=== PATIENT | female | born 1980 | race Hispanic/Latino ===

== ENCOUNTER 2018-05-05 07:21 | Emergency (ER) | payer OTHER ==
[2018-05-05] MEDS ORDERED: LIDOCAINE 5% TOPICAL PATCH TP ONE (07:58)
[2018-05-05] MEDS ORDERED: ACETAMINOPHEN 325 MG TAB ONE (07:59)
[2018-05-05 08:19] LABS: APPEARANCE,URINE Cloudy (CLEAR); BILIRUBIN,URINE Negative (NEGATIVE); COLOR,URINE Yellow (YELLOW); GLUCOSE, URINE (UA) Negative (NEGATIVE); KETONES,URINE Negative (NEGATIVE); LEUKOCYTE ESTERASE ,URINE Large (NEGATIVE); NITRATE,URINE Positive (NEGATIVE); OCCULT BLOOD,URINE Trace (NEGATIVE); PH,URINE 5.5 (5.0-8.0); PROTEIN,URINE POS 1+ (NEGATIVE); UROBILINOGEN,URINE 0.2 mg/dL (0.2-1.0)
[2018-05-05 08:30] LABS: HCG,QUAL RESULT POSITIVE (NEGATIVE)
[2018-05-05] MEDS ORDERED: LIDOCAINE HCL-MPF 1% 2ML VIAL ONE (08:45)
[2018-05-05] MEDS ORDERED: CEFTRIAXONE SODIUM 1 GM ONE (08:45)
[2018-05-05 08:54] LABS: BACTERIA,URINE Many /HPF (None Seen)
[2018-05-05 08:56] LABS: RBC,URINE 0-1 /HPF (0-1)
== END 2018-05-05 09:50 | disposition home or self-care (01) ==
LOC: EDH 07:21
DX: O23.42 Unspecified infection of urinary tract in pregnancy, second trimester (principal); O99.332 Smoking (tobacco) complicating pregnancy, second trimester; Z3A.16 16 weeks gestation of pregnancy
CPT/HCPCS: 76805; 81001; 81025; 87077; 87088; 87186; 96372; 99285; J0696; J3490